=== PATIENT | male | born 2000 | race Hispanic/Latino ===

== ENCOUNTER 2022-09-23 16:12 | Outpatient (CLI) | payer OTHER | END 2022-09-23 16:13 | disposition home or self-care (01) | LOC: EDBD 16:12 → BICRAD 16:12 | PROVIDERS: ATTEND Nurse Practitioner Women's Health | DX: R10.33 Periumbilical pain (principal); R19.5 Other fecal abnormalities | CPT/HCPCS: 74019 ==